=== PATIENT | male | born 1980 | race Caucasian/White ===

== ENCOUNTER 2025-03-30 06:00 | Day surgery (SDC) | payer OTHER ==
[~2025-03-30 06:00] MED LIST: Lactated Ringers 1,000 ML IV SCH; Sodium Chloride 0.9% 10 ML Syringe FLUSH PRN; Sodium Chloride 0.9% 10 ML Syringe FLUSH SCH
[2025-03-30] MEDS ORDERED: fentaNYL 100 MCG/2 ML SDV ONE (06:13)
[2025-03-30] MEDS ORDERED: Propofol 200 MG/20 ML SDV ONE (06:13)
[2025-03-30] MEDS ORDERED: dexmedeTOMIDine HCl 200 MCG/2 ML SDV ONE (06:13)
== END 2025-03-30 07:35 | disposition home or self-care (01) ==
LOC: JD.SDS 06:00
PROVIDERS: ATTEND Orthopaedic Surgery
DX: M65.311 Trigger thumb, right thumb (principal); Z79.899 Other long term (current) drug therapy; Z79.890 Hormone replacement therapy
CPT/HCPCS: 26055; J0665; J2003; J2704; J3010